=== PATIENT | male | born 1980 | race Caucasian/White ===

== ENCOUNTER 2021-03-19 14:59 | Emergency (ER) | payer OTHER, SELFPAY ==
[2021-03-19 15:18] VITALS: BP 133/89; PULSE 81; RESP 16; TEMP 36.7; O2SAT 99
--- NOTE | 2021-03-19 16:43 | ED.BACK ---
HPI - Back Pain/Injury General Chief Complaint: Back Pain/Injury Stated Complaint: Back Pain Time Seen by Provider: 03/19/21 16:44 Source: patient, RN notes reviewed and old records reviewed Mode of arrival: ambulatory Limitations: no limitations History of Present Illness HPI Narrative: 40-year-old male presents to [facility] with complaints of back pain across his lower back with some intermittent pain to right lateral thigh mid way down thigh which started today. 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 Patient states no history of any previous back problems. Patient denies any tingling or numbness to his lower extremities, denies any saddle paraesthesia or any difficulty passing his urine or any bowel problems. MD elicited complaint: back pain Related Data Allergies Allergy/AdvReac Type Severity Reaction Status Date / Time Penicillins Allergy Hives Verified 03/19/21 16:14 Review of Systems Review of Systems: CONSTITUTIONAL: Denies fever, chills, or sweats. EYES: Denies visual changes, redness, or discharge. ENT: Denies rhinorrhea, congestion, sore throat, or otalgia. CARDIOVASCULAR: Denies chest pain, palpitations, or edema. RESPIRATORY: Denies cough or dyspnea. GASTROINTESTINAL: Denies abdominal pain, nausea, vomiting, or diarrhea. GENITOURINARY: Denies dysuria or hematuria. SKIN: Denies rash or itching. MUSCULOSKELETAL: Positive for lower back pain, joint pain, or myalgia. NEUROLOGIC: Denies headache, numbness, or weakness. PSYCHIATRIC: Denies anxiety or depression. All systems reviewed & are unremarkable except as noted in HPI and below [facility] Past Medical History Medical History (Updated 03/20/21 @ 00:01 by Jaz Escoto) Fracture of left forearm Surgical History Surgical History (Updated 03/19/21 @ 16:55 by Flor Majano NP) No history of previous surgery Family History Family History (Updated 03/19/21 @ 16:55 by Flor Majano NP) Father Heart disease Malignant neoplasm of prostate Social History Social History (Updated 03/21/21 @ 15:47 by Flor Majano NP) Smoking status: Never smoker Alcohol intake: current Alcohol use details: social Substance use: never Living arrangements: with family Gender identity (if verbalized by the patient): Male Comments At time of signature, agree with nursing past medical, surgical, social and family history. There is no relevant family history pertinent to the presenting complaint Exam Narrative: GENERAL: Well-appearing, well-nourished, and in no acute distress. HEAD: Normocephalic, atraumatic. EYES: PERRLA and EOMI. ENT: Nares clear, no rhinorrhea or epistaxis. Mucous membranes moist.TM's normal with good light reflex, no throat redness lesions exudates or tonsil swelling. NECK: Supple.no lymphadenopathy CHEST: Clear to auscultation. No respiratory distress.SAO2 99% on room air. HEART: Regular rate and rhythm. No murmur heard. Normal peripheral pulses. ABDOMEN: Soft, nontender, nondistended, normal active bowel sounds. EXTREMITIES: Normal range of motion. No edema. Pain to lower back with some radiation to right thigh, increased pain with movement to right side and with bending, no tingling or numbness to lower extremities or to feet, strong pulses present. Denies any saddle paraesthesia. SKIN: Warm, dry, no rash. NEURO: No focal deficits. Alert and oriented x3. Course Vital Signs Vital signs: Vital Signs Temperature 36.7 C 03/19/21 15:18 Pulse Rate 81 03/19/21 15:18 Respiratory Rate 16 03/19/21 15:18 Blood Pressure 133/89 03/19/21 15:18 Pulse Oximetry 99 03/19/21 15:18 Temperature 36.7 C 03/19/21 15:18 Pulse Rate 81 03/19/21 15:18 Respiratory Rate 16 03/19/21 15:18 Blood Pressure 133/89 03/19/21 15:18
== END 2021-03-19 17:15 | disposition home or self-care (01) ==
PROVIDERS: Emergency Provider Registered Nurse
DX: S39.012A Strain of muscle, fascia and tendon of lower back, initial encounter (principal); X58.XXXA Exposure to other specified factors, initial encounter
CPT/HCPCS: 99213; G0463